=== PATIENT | female | born 1965 | race Caucasian/White ===

== ENCOUNTER 2023-02-08 11:42 | Day surgery (SDC) | payer OTHER, SELFPAY ==
[2023-02-08] VITALS (13 sets, daily range): BP systolic 113–132; BP diastolic 66–82; PULSE 59–84; RESP 12–20; TEMP 36.1–36.7; O2SAT 95–98; BMI 29.1
--- NOTE | 2023-02-08 | PATH_ITS ---
[facility] Accession Number: [id number] No. of containers..01 Tissue . 01 Material submitted: . uterus - UTERUS, BILATERAL FALLOPIAN TUBES, AND OVARIES . 01 Diagnosis: Uterus, Cervix, Left and Right Fallopian Tubes and Ovaries, Hysterectomy and Bilateral Salpingo-oophorectomy: Cervix: Nabothian cysts. Endometrium: Inactive. Myometrium: Extensive adenomyosis with cystic degeneration, old hemorrhage, and dystrophic calcification. Fallopian tubes: Negative for significant pathologic abnormality. Ovaries: Postmenopausal changes with epithelial inclusion cysts/glands and associated dystrophic calcification. [facility] 02/10/2023 1635 Local . 01 Electronically signed: . Haley George MD, Pathologist NPI- [id number] . 01 Gross description: . The specimen is received in formalin labeled with the patient's name, , and bilateral fallopian tubes, uterus, and ovaries, and consists of an intact uterus (111 grams, 8.7 cm SI, 6.5 cm ML, and 4.6 cm AP) with attached cervix (3.4 x 2.7 cm), attached left fimbriated fallopian tube (5.2 x 0.7 cm), attached left ovary (3 grams, 1.5 x 1.4 x 1.1 cm), attached right fimbriated fallopian tube (4.4 x 0.9 cm), and attached right ovary (2 grams, 2.0 x 1.4 x 0.7 cm). The ectocervix is pink-way, smooth and glistening, with a patulous cervical os measuring 0.6 cm in diameter. The anterior paracervical margin is inked blue while the posterior paracervical margin is inked black. The serosa is way and smooth with an area of hemorrhage measuring 2.2 cm in greatest dimension with no evidence of adhesion identified. The endocervical canal has way herringbone mucosa and measures 2.5 cm in length. The endometrial cavity is puckered and distorted near the left cornu measuring approximately 2.0 cm from cornu to cornu, and 3.1 cm in length. The endometrium is red-pink and averages 0.1 cm thick, and is significant for an ill-defined cystic lesion correlating with the aforementioned area of endometrial puckering measuring 4.5 x 2.6 x 2.5 cm. The lesion extends over two-thirds of the myometrium but not grossly approach the serosa. The cystic areas contain variable way and serous to red-brown and semi-solid material. The myometrium is pink-way measuring up to 2.7 cm thick. A single well-circumscribed white whorled nodule is identified located subserosally measuring 0.3 cm in greatest dimension. No additional lesions are identified. . The left fallopian tube has congested smooth serosa with no cystic structures identified, and sectioning reveals an unremarkable stellate lumen. The left ovary has way cerebriform external surface and sectioning reveals an unremarkable physiologic cut surface with no lesions or cysts grossly identified. . The right fallopian tube has congested smooth serosa with no cystic structures identified, and sectioning reveals an unremarkable stellate lumen. The right ovary has a way cerebriform external surface and sectioning reveals an unremarkable physiologic cut surface with no cysts or lesions identified. . Block Out Machine Operator sections are submitted as follows: A1: Anterior cervix. A2: Posterior cervix. A3: Longitudinal anterior lower uterine segment (orange ink designating end nearest cervix). A4-A7: Full-thickness anterior sections with lesion, cystic areas, and area of deepest invasion in A7. A8: Posterior perpendicular lower uterine segment (orange ink designating end nearest cervix). A9-A12: Posterior full-thickness sections. A13: Left fallopian tube to include one-half of bisected fimbriae and cross-sections. A14: Left ovary. A15: Right fallopian tube to include one-half of bisected fimbriae and cross-sections. A16: Right ovary. ([id number]) /MRV 02/09/2023 1348 Local . 01 Pathologist provided ICD-10: R10.2 . 01 CPT . 434845 Specimen Comment: A courtesy copy of this report has been sent to [phone] Performed at: 01 [facility] [address] [place] [address] Suite [facility] [place], [place], [place] [id number] MD Casey Eagle MD Phone: [phone]
[2023-02-08 12:20] LABS: COVID19 -Nasal RAPID Negative (Negative)
[2023-02-08] MEDS: LACTATED RINGERS 1,000 ML 42 ML IV ×2 (12:39→15:50)
[2023-02-08] MEDS: ACETAMINOPHEN 325 MG TABLET 975 MG PO (13:20)
[2023-02-08] MEDS: SCOPOLAMINE 1 PATCH TOP (13:21)
--- NOTE | 2023-02-08 13:33 | PM.PREOP ---
Pre-operative Note COVID-19 COVID-19 status: Negative Result date/Date tested (Pos, Neg/Pending): 02/08/23 Criteria for continued procedure: Non-surgical alternatives not available or appropriate per current SOC Interval Note History & Physical reviewed/Exam performed by Physician: Yes Changes to H&P: No
[2023-02-08] MEDS: CEFAZOLIN 2 GM/100 ML PREMIX 100 ML IV (13:40)
--- NOTE | 2023-02-08 14:13 | SUR.OPER ---
Lithotomy on padded OR bed. Wheatley Pad Positioner under torso. Head on pillow, arms padded and tucked at sides. Legs secured in padded yellow fins stirrups.
[2023-02-08] MEDS: BUPIVACAINE 0.5% (PF) 30 ML, EPINEPHrine 0.15 MG INJ (14:20)
[2023-02-08] MEDS: ROPIVACAINE 0.2% PF 2 MG/ML 20ML AMP 20 ML INJ (14:22)
--- NOTE | 2023-02-08 16:10 | PM.GYNOP.1 ---
Operative Date/Time/Diagnoses Date of procedure: 02/08/23 Time of procedure: 14:00 Pre-op diagnosis: Menorrhagia Endometrial mass Right sided pelvic pain Post-op diagnosis: same Procedure & Clinicians Procedure: Procedures Operation Date: 02/08/23 13:30 Actual Procedure Side Surgeon p Laparoscopic Total Hysterectomy w. bilateral salpingo-ophorectomy Lei Jovel MD Indications: Fatemeh is a 57-year-old A1, LMP in 2011 prior to endometrial ablation who presents today for evaluation of endometrial mass discovered with pelvic ultrasound performed due to the onset of pelvic/back pain in October 2022.? Patient experienced menarche at about age 12-13 and has had regular predictable periods throughout her adult life up until the early to mid 40s when she began to experienced menometrorrhagia.? The abnormal uterine bleeding led to performance of an endometrial ablation in 2011 and she is not had any vaginal bleeding since that time.? No records of the ablation or the pathology obtained at time of D&C is available for review.? Patient's pain started in October of 2022 as low back pain and gradually morphed into more right-sided sharp pain.? Over the last 6-7 weeks the pain has become constant and has now started to radiate down the anterior aspect of her right leg.? She has experienced no weakness in the leg.? She is had some discomfort with intercourse but due to the discomfort intercourse has been minimal.? Paps have always been normal with her last within the last 2 years.? Pelvic ultrasound performed as part of the evaluation of her right lower quadrant pain was performed at [facility] on 12/15/2022 and showed the uterus to be anteverted and enlarged in size at 8.8 x 5.3 x 7.2 cm.? The myometrium is heterogenous.? The endometrium is not identified.? Instead there is a large heterogeneous complex mass which may potentially arise from the endometrium measuring 6.1 x 5.6 x 5.8 cm.? It has vascularity.? The ovaries are not identified possibly secondary to overlying bowel gas or involutional changes.? No adnexal masses were seen and there was no pathologic free abdominal fluid or pelvic fluid noted.? Abdominal CT performed at about the same time was essentially unremarkable.? Endometrial biopsy performed 12/24/2022 showed stripped atrophic endometrial epithelium without atypia.? Pap smear performed in January 2022 is NIL with negative high-risk HPV. The patient underwent premature spontaneous menopause in her mid 40s and has since then been on HRT.? Her current regimen consists of estradiol 0.5 mg p.o. q.d. and 200 mg Prometrium HS.? When she was diagnosed with an endometrial mass however she discontinued use of HRT and she is not taking it currently. The patient's pain is the driving factor in her desire for treatment of the endometrial mass which is presumably causing the pain which has been present for the last several months.? The option of expectant management was rejected and we discussed options for further evaluation and treatment.? The option attempted hysteroscopy and/or ultrasound-guided biopsy of the endometrial mass was discussed.? Unfortunately while it may provide a tissue diagnosis for the nature of the mass, it would not be therapeutic and therefore the patient does not wish to proceed in that direction.? We discussed at length the fact that hysterectomy without confirmed tissue diagnosis of the mass prior to hysterectomy could result in removal of the uterus containing an occult malignancy.? Although that probability seems low, the option of having the surgery performed by gynecology teacher Oncology at a center capable of frozen sections, lymph node sampling etc. was offered and declined.? Instead the patient would like to move forward as soon as possible with total laparoscopic hysterectomy with bilateral salpingectomy.? Given that the patient has likely been menopausal for over 10 years based on her history, oophorectomy was also recommended but is open for discussion as we move toward surgery.? After consideration of all options, the patient has opted for total laparoscopic hysterectomy with bilateral salpingo-oophorectomy and she presents today for her scheduled surgery. Surgeon: Lei Jovel After School Program Coordinator: Charissa Olmedo Anesthesia Type: General Operative Notes Findings: The uterus is approximately 8 weeks in size and appears myomatous with the right cornua distended. The fallopian tubes demonstrates changes consistent prior Falope ring sterilization procedure. The ovaries both appeared to be normal. There were no adhesions or other abnormalities in either the anterior or posterior cul-de-sac. The remainder of the pelvis is unremarkable and the ureters were seen to be peristalsing freely at the beginning and at the end of the case. The appendix appears normal. The liver edge appears normal and the upper abdomen appears normal to laparoscopic inspection. Closure Type: primary Specimen(s): left tube & ovary, right tube & ovary and uterus Applied: catheter Estimated blood loss (mL): 125 Blood products transfused: none Procedure in detail: With the patient in modified dorsal lithotomy position preparations were made by prepping and draping the patient in usual manner for vaginal surgery and insertion of Gore catheter. A pre-surgical time-out was then taken in accordance with [facility] policy. A bivalve speculum was then placed in the vagina and the cervix visualized. The anterior lip of the cervix was then grasped with a single-tooth tenaculum. The uterus was sounded to 8 cm, the endocervical canal dilated slightly, and a VCare uterine manipulator with a small colpotomy cup was placed. The umbilicus was then infiltrated with 0.5% Marcaine with epinephrine. A 1 cm umbilical incision was made transversely and a Veress needle was used to insufflate the abdominal cavity with carbon dioxide. Once the abdomen was appropriately insufflated, a 5 mm trocar and sleeve were then placed through the umbilical incision. The scope was placed through the trocar and the initial assessment of the intra-abdominal contents carried out. A 2nd and 3rd 5 mm port was then placed 1st in the right mid quadrant from then the left mid quadrant by infiltration of the skin and subcutaneous tissues, a 1 cm transverse incision and insertion of the 5 mm bladeless port. Using a 3 puncture technique, the abdomen and pelvis were inspected laparoscopy and photographically documented. Uterus is mobilized with the VCare manipulator and attention turned to the left adnexa. The distal tube was then grasped and the infundibulopelvic ligament was divided after coagulation with the PowerSeal device. The dissection was then carried across the mesosalpinx to the cornua and the dissection was then carried down using the PowerSeal device so as to divide the utero-ovarian ligament and the round ligament with blunt and sharp dissection of the broad down to the level of the uterine artery. The uterine artery was then skeletonized after development of a bladder flap, coagulated, and divided. Once hemostasis was assured on the left side attention was turned to the right. The infundibulopelvic ligament was coagulated and divided with the dissection carried across the mesosalpinx to the cornua, round ligament, and broad ligament were dissected in a fashion exactly the same as it had been on the left. The right uterine artery was then visualized after skeletonization and coagulated and divided. The uterus was seen to attila after coagulation of both your arteries and the cup was identified through the vaginal muscularis at its insertion with the body of the cervix. Circumferential excision of the vaginal cup was accomplished without difficulty using monopolar current and the uterus mobilized. The uterus was then removed through the vagina and the vaginal cuff closed [id number] with a series of 0 Vicryl [id number] stitches. Hemostasis was excellent, the abdomen was re-insufflated, and the pelvis inspected laparoscopically. The pelvis was inspected for any abnormality or bleeding, and the ureters were each seen to be peristalsing freely. With complete hemostasis assured, the pneumoperitoneum was vented and the ports removed. All of the 5 mm ports were then closed with 4-0 Monocryl on the skin using inverted interrupted sutures. Skin glue was placed and after the glue was dried, an appropriate dressing was applied. The case was then terminated, the patient awakened, and then transferred to PACU after having tolerated the procedure well. Complications: none Post-operative Condition: stable Disposition: PACU Plan for aftercare: Recovery in ambulatory surgery in discharge home later today if pain is under control and she is tolerating oral intake well.
--- NOTE | 2023-02-08 16:38 | SUR.PHASEI ---
Pt requested pyridium and RN called and MD not available at present . Left message for him to call me back.
[2023-02-08] MEDS: PHENAZOPYRIDINE 100 MG TABLET 200 MG PO (17:17)
[2023-02-08] MEDS: LACTATED RINGERS 1,000 ML 100 ML IV (17:23)
[2023-02-08 18:02] LABS: Hepatitis B Surface Antigen NEGATIVE s/c (NEGATIVE)
[2023-02-08 18:20] LABS: HIV 1 & 2 Ab/Ag 4th Gen Combo NEGATIVE (NEGATIVE); Hep C Virus Ab w/Reflex Quant NEGATIVE s/c (NEGATIVE)
[2023-02-08 19:32] LABS: Alanine Aminotransferase 30 IU/L (<35)
--- NOTE | 2023-02-08 19:36 | PC.NURSE ---
Pt arrived from PACU at 1700, A&OX4 RA, VSS, afebrile. C/O bladder spasms improved with pyridium and MD at bedside decreasing balloon volume in [place]. Continuous monitoring. zofran given per request, no emesis. LR at 100 ml/hr. Alevyn and lap site dressings c/d/i
[2023-02-08] MEDS: ACETAMINOPHEN 325 MG TABLET 650 MG PO (22:35)
[2023-02-08] MEDS: OXYCODONE IR 5 MG TABLET 10 MG PO (22:36)
[2023-02-09] MEDS: OXYCODONE IR 5 MG TABLET 10 MG PO (00:16)
[2023-02-09 03:36] VITALS: BP 124/75; PULSE 77; RESP 15; TEMP 36.4; O2SAT 97
[2023-02-09 05:18] LABS: Add Manual Diff / Slide Review NO; Basophils Absolute Auto 0 /uL (0-100); Basophils Percent Auto 0.3 % (0-2); Eosinophils Absolute Auto 0 /uL (0-450); Eosinophils Percent Auto 0.1 % (2-4); Hematocrit 38.6 % (36-46); Hemoglobin 13.3 g/dL (12.0-16.0); Lymphocytes Absolute Auto 1300 /uL (1100-4500); Mean Corpuscular HGB Conc 34.4 % (30-36); Mean Corpuscular Hemoglobin 32.1 PG (26-34); Mean Corpuscular Volume 93.3 fL (80-100); Monocytes Absolute Auto 700 /uL (0-900); Monocytes Percent Auto 7.2 % (3-14); Neutrophils Absolute Auto 8200 /uL (1500-7000); Neutrophils Percent Auto 79.4 % (50-75); Platelet Count 280 X10^3/uL (150-400); Red Blood Cell Count 4.13 X10^6/uL (4.0-5.2); Red Cell Distribution Width 13.1 % (11.6-14.8); White Blood Cell Count 10.3 X10^3/uL (4.5-11.0)
[2023-02-09] MEDS: ACETAMINOPHEN 325 MG TABLET 650 MG PO (06:00)
--- NOTE | 2023-02-09 07:58 | P.DS_ITS ---
History of Present Illness History of Present Illness Date Patient Seen: 02/09/23 Time Patient Seen: 07:58 Chief complaint: Laparoscopic Total Hysterectomy Narrative: Fatemeh is a 57-year-old A1, LMP in 2011 prior to endometrial ablation who presents today for evaluation of endometrial mass discovered with pelvic ultrasound performed due to the onset of pelvic/back pain in October 2022.? Patient experienced menarche at about age 12-13 and has had regular predictable periods throughout her adult life up until the early to mid 40s when she began to experienced menometrorrhagia.? The abnormal uterine bleeding led to performance of an endometrial ablation in 2011 and she is not had any vaginal bleeding since that time.? No records of the ablation or the pathology obtained at time of D&C is available for review.? Patient's pain started in October of 2022 as low back pain and gradually morphed into more right-sided sharp pain.? Over the last 6-7 weeks the pain has become constant and has now started to radiate down the anterior aspect of her right leg.? She has experienced no weakness in the leg.? She is had some discomfort with intercourse but due to the discomfort intercourse has been minimal.? Paps have always been normal with her last within the last 2 years.? Pelvic ultrasound performed as part of the evaluation of her right lower quadrant pain was performed at [facility] on 12/15/2022 and showed the uterus to be anteverted and enlarged in size at 8.8 x 5.3 x 7.2 cm.? The myometrium is heterogenous.? The endometrium is not identified.? Instead there is a large heterogeneous complex mass which may potentially arise from the endometrium measuring 6.1 x 5.6 x 5.8 cm.? It has vascularity.? The ovaries are not identified possibly secondary to overlying bowel gas or involutional changes.? No adnexal masses were seen and there was no pathologic free abdominal fluid or pelvic fluid noted.? Abdominal CT performed at about the same time was essentially unremarkable.? Endometrial biopsy performed 12/24/2022 showed stripped atrophic endometrial epithelium without atypia.? Pap smear performed in January 2022 is NIL with negative high-risk HPV. The patient underwent premature spontaneous menopause in her mid 40s and has since then been on HRT.? Her current regimen consists of estradiol 0.5 mg p.o. q.d. and 200 mg Prometrium HS.? When she was diagnosed with an endometrial mass however she discontinued use of HRT and she is not taking it currently. The patient's pain is the driving factor in her desire for treatment of the endometrial mass which is presumably causing the pain which has been present for the last several months.? The option of expectant management was rejected and we discussed options for further evaluation and treatment.? The option attempted hysteroscopy and/or ultrasound-guided biopsy of the endometrial mass was discussed.? Unfortunately while it may provide a tissue diagnosis for the nature of the mass, it would not be therapeutic and therefore the patient does not wish to proceed in that direction.? We discussed at length the fact that hysterectomy without confirmed tissue diagnosis of the mass prior to hysterectomy could result in removal of the uterus containing an occult malignancy.? Although that probability seems low, the option of having the surgery performed by medicare coordinator Oncology at a center capable of frozen sections, lymph node sampling etc. was offered and declined.? Instead the patient would like to move forward as soon as possible with total laparoscopic hysterectomy with bilateral salpingectomy.? Given that the patient has likely been menopausal for over 10 years based on her history, oophorectomy was also recommended but is open for discussion as we move toward surgery.? After consideration of all options, the patient has opted for total laparoscopic hysterectomy with bilateral salpingo-oophorectomy and she presents for her scheduled surgery. Discharge Providers Provider Date of admission: 02/08/2023 Discharge Date: 02/09/23 Primary care physician: TYLER Sky Discharge provider: Lei Jovel MD Summary Hospital Course Discharge Diagnosis: Menorrhagia Endometrial mass Right lower quadrant/right pelvic pain Status post total laparoscopic hysterectomy with bilateral salpingo oophorectomy Hospital Course: Fatemeh's admitted on the morning of 02/08/2023 and on the afternoon of 02/08/2023 she underwent an uneventful total laparoscopic hysterectomy with bilateral salpingo oophorectomy. Details of the procedure well summarized on my operative note of that date. Following her surgery the patient has done extremely well with prompt return of bowel and bladder function, she is ambulating independently, tolerating regular diet, and her pain is well controlled with oral pain medications. She will be discharged at this time in an afebrile normotensive condition after counseling regarding precautionary symptoms, limitations of activity, medications, and plans for follow-up which will be in 2 weeks. Prescription has been sent to her pharmacy for oxycodone 5 mg every 6 hours as needed for pain, dispense 20 with no refills, and Cipro 500 mg p.o. b.i.d. x5 days for UTI prophylaxis following catheterization. Status at Discharge Cognitive/behavioral status at discharge: oriented Functional status at discharge: independent ambulation Overall status at discharge: patient is progressing back to baseline Time Spent with Patient Time spent: Less than 30 minutes Exam Vital Signs (past 8 hours): - 02/09/23 03:36 Temperature 97.6 F Pulse Rate 77 Respiratory Rate 15 Blood Pressure 124/75 Pulse Oximetry 97 Oxygen Flow Rate 0 Oxygen Delivery Method Room Air Oxygen Flow Rate 0 Const General: cooperative and comfortable Nutritional Appearance: average body habitus Orientation: alert and oriented x3 HENMT Head: normal to inspection, atraumatic and abrasion Ears: hearing grossly normal bilaterally Face and sinus: face symmetric Eyes General: appearance normal, both eyes and all related structures Conjunctivae: conjunctivae normal Sclera: sclerae normal EOM: EOM intact bilaterally Neck Neck: normal visual inspection Resp Effort & Inspection: normal respiratory effort and able to speak in complete sentences Auscultation: clear to auscultation bilaterally Cardio Rate: regular rate Rhythm: regular rhythm Heart Sounds: S1 normal, S2 normal and no murmurs GI Inspection: normal to inspection and incision (Surgical dressings clean and dry) Palpation: soft, no hepatosplenomegaly and tender (Mild, diffuse postsurgical tenderness) Auscultation: normal bowel sounds External Female Exam: other (No significant bleeding noted) Extrem General: no calf tenderness Psych Appearance: grossly normal Mental Status: mental status grossly normal Speech and Movement: speech and movement normal Mood: congruent mood Affect: normal affect Attitude: cooperative Thought Process: normal Thought Content: normal Judgment: judgment good Objective Labs 02/09/23 05:00 Labs: Laboratory Results - last 24 hr 02/08/23 02/08/23 02/08/23 12:00 15:50 18:40 WBC RBC Hgb Hct MCV MCH MCHC RDW Plt Count Neut % (Auto) Lymph % (Auto) [place] % (Auto) Eos % (Auto) Baso % (Auto) Neut # (Auto) Lymph # (Auto) [place] # (Auto) Eos # (Auto) Baso # (Auto) ALT 30 SARS-CoV-2 (PCR) Negative Hep Bs Antigen Negative Hepatitis C Antibody Negative HIV 1&2 Ab/P24 Ag 4thGn Negative 02/09/23 05:00 WBC 10.3 RBC 4.13 Hgb 13.3 Hct 38.6 MCV 93.3 MCH 32.1 MCHC 34.4 RDW 13.1 Plt Count 280 Neut % (Auto) 79.4 H Lymph % (Auto) 13.0 L [place] % (Auto) 7.2 Eos % (Auto) 0.1 L Baso % (Auto) 0.3 Neut # (Auto) 8200 H Lymph # (Auto) 1300 [place] # (Auto) 700 Eos # (Auto) 0 Baso # (Auto) 0 ALT SARS-CoV-2 (PCR) Hep Bs Antigen Hepatitis C Antibody HIV 1&2 Ab/P24 Ag 4thGn PFSH Social History household members: significant other Smoking Status: Never smoker alcohol intake: current Discharge Assessment & Plan Assessment and Plan Assessment: Menorrhagia Endometrial mass Right lower quadrant/right sided pelvic pain Status post total laparoscopic hysterectomy with bilateral salpingo oophorectomy Plan of Treatment: Routine postoperative care with follow-up planned for 2 weeks postop or as needed. Discharge Plan Discharge Plan Patient Disposition: Home Provider Discharge Comment: Please review the written instructions you received when you were discharged from the hospital. Your follow-up appointment will be 2 weeks after your surgery and I look forward to seeing you then. If however in the meanwhile you have any issues, concerns, or questions, please contact me either through the office phone at [phone], or via the patient portal. Discharge orders & Medications Discharge Orders: Discharge (Order); Ordered 02/09/23 Ordered By: Lei Jovel Prescriptions: New oxycodone 5 mg tablet 5 mg PO Q6H PRN (Reason: pain) Qty: 20 0RF ciprofloxacin HCl [Cipro] 500 mg tablet 500 mg PO BID 5 Days Qty: 10 0RF Continued fexofenadine 180 MG tablet 180 mg PO PRN Qty: 0 MULTIVITAMIN (#MULTIPLE VITAMINS) 1 cap PO QDAY Qty: 0 Fluticasone Propionate (FLONASE) 2 spray Intranasal QDAY Qty: 0 hydrocodone-acetaminophen 5-325 mg tablet 1 tab PO Q6H PRN (Reason: pain) Qty: 45 0RF valsartan-hydrochlorothiazide [Diovan HCT] 160-25 mg tablet 1 tab PO DAILY potassium chloride 10 mEq tablet extended release 10 meq PO DAILY furosemide 20 mg Tablet 10 mg PO DAILY bupropion HCl 150 mg tablet extended release 24 hr 150 mg PO DAILY zolpidem 6.25 mg tablet,ext release multiphase 6.25 mg PO DAILY PRN (Reason: Insomnia) Linzess 145 mcg capsule 145 mcg PO DAILY Follow up/Referrals: Suzette Gonzalez ARNP [Primary Care Provider] - Lei Jovel MD [Physician] - Diet/Activity/Treatments Diet: Diet as Tolerated Activity: As tolerated Other treatments: [id number] Tylenol may also be used for pain relief. Llrb-[id number] stool softeners and/or MiraLax may be used as needed for constipation. Skin/Wound/Dressing Care Report to your healthcare provider any signs of infection, such as:: chills, fever, increased pain, unusual drainage and unusual redness Dressing: Dressings should be removed on the morning of 02/10/2023 Visit Report/Discharge Packet Instructions: DI for Hysterectomy, DI for Laparoscopy Stand Alone Forms: Surgery Discharge Discharge Data Primary Care Provider: Suzette Gonzalez Attending Provider: Lei Jovel
--- NOTE | 2023-02-09 09:26 | CM.DANOTE ---
DCP: Case received, EMR reviewed and met with patient. Introduced self and role. Was able to obtain some information from patient. DCP assessment completed with information currently available. Patient is a 57 year old female who admitted yesterday morning to the care of the surgical team. PCP: Dr. Alcala. Payer: confirmed: [employer]. Patient came to the hospital via private vehicle for a surgical procedure. Patient had laparoscopic total hysterectomy with bilateral salpingo-ophorectomy. Patient has history of menorrhagia. Met with patient in her room. She was sitting up in bed, alert and oriented. She is being discharged, was getting discharge instructions. Patient resides in [place], has a daughter in [place] as well. 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 P: Patient has discharge orders for home today. Smiley Zabala RN/Applications Sales Consultant Discharge Planning/Care Management CM Discharge Assessment Start: 02/09/23 09:24 Freq: Status: Active Protocol: Document 02/09/23 09:25 (Rec: 02/09/23 09:26 [id number]) Discharge Planning Assessment Assigned Freight Car Repairer Smiley Zabala RN/Applications Sales Consultant Advance Directives? Yes Advance Directives on File No History Provided By Patient,Medical Record Prior Living Arrangements Apartment/Condo Household Members significant other Type of transporation used prior to Drives own vehicle admit Independent with ADL's Yes Is patient alert and oriented? Yes Caregiver for Another No Barriers to Discharge No Discharge Plan Home Transportation Arrangement Family Referrals Initiated None needed Whiteboard Updated in Patient Room with Yes name and ext. # of Freight Car Repairer Review Status In Process Next Review Type Continued Stay Review
--- NOTE | 2023-02-09 10:47 | PC.NURSE ---
Pt A&OX4, VSS, afebrile on RA. Adomen incision site dressing c/d/i. Hypoactive BSx4+. She is ambulating in the room independently and voiding without difficulty.Patient is evaluated by MD Jovel at bedside this a.m. and is cleared for discharge home this a.m. She verbalizes understanding of site care, activity limitations, medications, and follow up appointment made. Patient is escorted by wheel chair with all of her belongings to private vehicle with her for discharge home at approximately at 0900 this a.m.
[2023-02-11 11:30] LABS: Hepatitis B Surf Ab Qualitativ Reactive (.)
== END 2023-02-09 09:00 | disposition home or self-care (01) ==
LOC: OR 11:45 → AC 17:12
PROVIDERS: Family Provider Physician Assistant Medical; PCP Nurse Practitioner; Referring Provider Obstetrics & Gynecology; Visit Provider Obstetrics & Gynecology
PROC: 0UT94ZZ Resection of Uterus, Percutaneous Endoscopic Approach (ICD-10-PCS; CPT 58571; principal; 2023-02-08 13:30)
DX: N92.0 Excessive and frequent menstruation with regular cycle (principal); N88.8 Other specified noninflammatory disorders of cervix uteri; N80.03 Adenomyosis of the uterus; N83.292 Other ovarian cyst, left side; N83.291 Other ovarian cyst, right side
CPT/HCPCS: 58571; 36415; 85025; 87635; C9803; J0171; J0690; J1100; J1885; J2250; J2405; J2704; J2795; J3010

== ENCOUNTER → 2024-01-26 15:29 | Outpatient (CLI) | payer OTHER, SELFPAY ==
[2023-02-08 17:13] VITALS: BMI 29.1
--- NOTE | 2024-01-26 | DI.CT.S_ITS ---
PROCEDURE: CT SINUS SCREEN WO CON INDICATIONS: Chronic parasinusitis TECHNIQUE: Noncontrast 3.0 mm axial images acquired from the frontal sinuses to the mid-sella, with coronal and sagittal reformats. For radiation dose reduction, the following was used: automated exposure control, adjustment of mA and/or kV according to patient size. COMPARISON: Outside Film, CT, CT SINUS WITHOUT CONTRAST, 10/09/2021, 12:12. FINDINGS: Image quality: Excellent. Sinuses: Mild scattered areas of mucosal thickening most prominent in the maxillary sinuses. Postoperative changes are seen in the anterior soto of the maxillary sinuses with demineralization of the medial soto, unchanged. . Ostiomeatal Complexes: Ostiomeatal complexes are patent. No Trever cells. Miscellaneous: Visualized intra-orbital contents are normal. No sam bullosa. Paradoxical left middle turbinate curvature. No nasal septal deviation. IMPRESSION: Postoperative changes in the maxillary sinuses with mild areas of mucosal thickening relatively unchanged. Dictated by: Judy Ho M.D. on 01/26/2024 at 21:15 Approved by: Judy Ho M.D. on 01/26/2024 at 21:18
== END ==
LOC: CT 15:30
PROVIDERS: Family Provider Physician Assistant Medical; PCP Nurse Practitioner; Referring Provider Otolaryngology; Visit Provider Otolaryngology
DX: J32.4 Chronic pansinusitis (principal); R51.9 Headache, unspecified; J34.89 Other specified disorders of nose and nasal sinuses
CPT/HCPCS: 70486